=== PATIENT | female | born 1960 | race Two or more races ===

== ENCOUNTER 2017-01-27 08:29 | Outpatient (CLI) | payer BC ==
[2017-01-27 10:28] LABS: ALBUMIN 4.3 g/dL (3.4-5.0); BILIRUBIN,TOTAL 0.5 mg/dL (0.2-1.0); CALCIUM, SERUM 9.3 mg/dL (8.5-10.1); CREATININE 0.9 mg/dL (0.6-1.3); POTASSIUM 3.5 mmol/L (3.5-5.1); TOTAL PROTEIN, SERUM 8.6 g/dL (6.4-8.2)
[2017-01-27 10:39] LABS: THYROID STIMULATING HORMONE 0.982 uIU/mL (0.358-3.74)
[2017-01-29 08:08] LABS: VIT D, 25-HYDROXY 31.2 ng/mL (30.0-100.0)
== END 2017-01-27 23:59 | disposition home or self-care (01) ==
LOC: LAB 08:29
PROVIDERS: ATTEND Family Medicine
DX: E55.9 Vitamin D deficiency, unspecified (principal)
CPT/HCPCS: 36415; 80053-TC; 80061-TC; 82306; 82533; 82728-TC; 82746; 83540-TC; 84439-TC; 84443-TC

== ENCOUNTER 2017-02-09 09:12 | Outpatient (CLI) | payer BC | END 2017-02-09 23:59 | disposition home or self-care (01) | LOC: LAB 09:12 | PROVIDERS: ATTEND Family Medicine | DX: Z01.83 Encounter for blood typing (principal) | CPT/HCPCS: 86900-TC ==

== ENCOUNTER 2018-11-08 13:14 | Emergency (ER) | payer BC, OTHER ==
[~2018-11-08] VITALS: Ht 177.8 cm; Wt 74.8 kg
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
--- NOTE | 2018-11-08 13:33 | NUR ---
DR. KAPADIA AT BEDSIDE FOR EVAL.
[2018-11-08] MEDS ORDERED: IBUPROFEN 600 MG TABLET PO ONE ×2 (13:37→14:00)
[2018-11-08] MEDS ORDERED: ACETAMINOPHEN ES 500 MG TABLET ONE (13:37)
[2018-11-08] MEDS ORDERED: ACETAMINOPHEN ES 500 MG TABLET PO ONE (14:00)
--- NOTE | 2018-11-08 14:11 | NUR ---
Patient discharged to home in stable condition. Written and verbal after care instructions given. Patient verbalizes understanding of instruction.
[2018-11-08 14:12] VITALS: BP 131/92
== END 2018-11-08 14:19 | disposition home or self-care (01) ==
LOC: ER 13:16
DX: M25.511 Pain in right shoulder (principal); I10 Essential (primary) hypertension; I44.0 Atrioventricular block, first degree
CPT/HCPCS: 93005; 99283; A4606; Z7610

== ENCOUNTER → 2019-10-02 | Outpatient (CLI) | payer BC, OTHER | END | disposition home or self-care (01) | LOC: WOU 10:30 | PROVIDERS: ATTEND Podiatrist Foot & Ankle Surgery | DX: S92.355D Nondisplaced fracture of fifth metatarsal bone, left foot, subsequent encounter for fracture with routine healing (principal); W18.30XD Fall on same level, unspecified, subsequent encounter; M79.672 Pain in left foot; R60.0 Localized edema; I10 Essential (primary) hypertension | CPT/HCPCS: G0463 ==

== ENCOUNTER 2019-10-24 10:02 | Outpatient (CLI) | payer BC | END 2019-10-24 23:59 | disposition home or self-care (01) | LOC: RAD 10:02 | PROVIDERS: ATTEND Podiatrist Foot & Ankle Surgery | DX: S92.312D Displaced fracture of first metatarsal bone, left foot, subsequent encounter for fracture with routine healing (principal); M77.32 Calcaneal spur, left foot; X58.XXXD Exposure to other specified factors, subsequent encounter | CPT/HCPCS: 73630-TC ==

== ENCOUNTER 2019-10-24 13:00 | Outpatient (CLI) | payer BC | END 2019-10-24 23:59 | disposition left against medical advice (07) | LOC: WOU 13:00 | PROVIDERS: ATTEND Podiatrist Foot & Ankle Surgery | DX: Z75.3 Unavailability and inaccessibility of health-care facilities (principal) ==

== ENCOUNTER 2021-07-06 13:55 | Outpatient (CLI) | payer BC ==
[2021-07-06 16:18] LABS: BASOPHILS % (AUTO) 0.7 % (0.0-2.0); HEMATOCRIT 39 % (33-45); HEMOGLOBIN 12.7 g/dL (11.5-14.8); LYMPHOCYTES # (AUTO) 2.1 K/uL (0.8-4.8); MEAN CORPUSCULAR HGB CONC 33 g/dl (31.0-36.0); MEAN CORPUSCULAR VOLUME 87 fL (82-100); MONOCYTES # (AUTO) 0.4 K/uL (0.1-1.30); MONOCYTES % (AUTO) 8.6 % (2.0-12.0); NEUTROPHILS # (AUTO) 2.2 K/uL (1.8-8.9); NEUTROPHILS % (AUTO) 46.7 % (43.0-81.0); PLATELET COUNT (AUTO) 218 K/uL (150-450); RED BLOOD CELL COUNT(AUTO) 4.49 MIL/uL (4.0-5.2); WHITE BLOOD COUNT (AUTO) 4.8 K/uL (4.3-11.0)
[2021-07-06 16:36] LABS: BILIRUBIN,URINE NEGATIVE (NEGATIVE); COLOR,URINE YELLOW (YELLOW); LEUKOCYTE ESTERASE ,URINE NEGATIVE (NEGATIVE); NITRITE, URINE NEGATIVE (NEGATIVE); PROTEIN,URINE NEGATIVE (NEGATIVE); UGLUCOSE NEGATIVE (NEGATIVE); UROBILINOGEN,URINE 0.2 EU/dL (0.2)
[2021-07-06 16:37] LABS: BILIRUBIN,TOTAL 0.4 mg/dL (0.2-1.0); CALCIUM, SERUM 9.4 mg/dL (8.5-10.1); CREATININE 0.9 mg/dL (0.6-1.3); POTASSIUM 3.8 mmol/L (3.5-5.1); TOTAL PROTEIN, SERUM 8.3 g/dL (6.4-8.2)
[2021-07-06 17:20] LABS: THYROID STIMULATING HORMONE 1.036 uIU/mL (0.358-3.74)
== END 2021-07-06 23:59 | disposition home or self-care (01) ==
LOC: LAB 13:55
PROVIDERS: ATTEND Family Medicine
DX: I10 Essential (primary) hypertension (principal); E55.9 Vitamin D deficiency, unspecified
CPT/HCPCS: 36415; 80053-TC; 80061-TC; 82306; 84439-TC; 84443-TC; 85025-TC